=== PATIENT | female | born 1985 | race Caucasian/White ===

== ENCOUNTER 2023-08-07 10:55 | Emergency (ER) | payer OTHER, SELFPAY ==
[2023-08-07 10:58] VITALS: BP 140/81
[2023-08-07 12:19] LABS: % Basophils 1.2 % (0-2); % Eosinophils 0.6 % (0-6); % Immature Granulocytes 0.1 % (0-0.5); % Lymphocytes 28.3 % (20.5-51.1); % Monocytes 8.7 % (1.7-9.3); % Neutrophils 61.1 % (42.2-75.2); Absolute Basophils 0.1 10^3/uL (0-0.2); Absolute Monocytes 0.6 10^3/uL (0.1-0.6); Absolute Neutrophils 4.2 10^3/uL (1.4-6.5); Hematocrit 32.2 % (37.0-47.0); Mean Corp Hgb Conc. 31.1 g/dL (33.0-37.0); Mean Corpuscular Hgb 23.8 pg (27.0-31.0); Mean Corpuscular Volume 76.5 fL (81.0-99.0); Mean Platelet Volume 9.6 fL (7.4-10.4); Nucleated Red Blood Cells % 0 %; Platelet Count 380 10^3/uL (130-400); Red Blood Cell Count 4.21 10^6/uL (4.20-5.40); Red Cell Dist. Width 15.7 % (11.5-14.5); White Blood Cell Count 6.9 10^3/uL (4.8-10.8)
[2023-08-07] MEDS: DECADRON 10 MG IV (12:19)
[2023-08-07] MEDS: NSS 1000 IV (12:19)
[2023-08-07] MEDS: BENADRYL 25 MG IV (12:20)
[2023-08-07] MEDS: REGLAN 10 MG IV (12:20)
[2023-08-07] MEDS: TORADOL 15 MG IV (12:20)
[2023-08-07 12:39] LABS: HCG, Serum Qualitative Screen Negative
[2023-08-07 12:42] LABS: Blood Urea Nitrogen 15 mg/dl (7-17); Calcium 8.7 mg/dl (8.4-10.2); Carbon Dioxide 24 mmol/L (22-30); Chloride 110 mmol/L (98-107); Glucose 97 mg/dl (70-99); Potassium 4.1 mmol/L (3.5-5.1); Sodium 137 mmol/L (135-145); eGFR > 60.00
--- NOTE | 2023-08-07 12:43 | ED.GENMED ---
History of Present Illness
General
Chief Complaint: Headache
Source: patient and spouse
Exam Limitations: none
Time Seen by Provider: 08/07/23 11:28
Nursing documentation reviewed up to this point in time: agreed with
Travel History
Have you had any contact with someone who has COVID-19?: No
Do you have any symptoms of coronavirus? Fever > 100 degrees, chills, cough, shortness of breath, sore throat, loss of taste or smell, muscle aches, or headache?: Yes
Symptoms:: [place]
History of Present Illness
History of Present Illness:
38-year-old female with past medical history of previous seizures migraines anemia presenting to the emergency department today with concerns of left-sided ongoing headache. Diagnosed with Cat's palsy 3 weeks ago treated with steroid and
antiviral. Initially it symptoms but worsening symptoms of the past few days with swelling mainly to the left lateral neck. The drooping of her face has decreased. Denies any fever chest pain shortness of breath or additional concerns otherwise.
Past History
Past History
ED Past Medical History: None
ED Past Surgical History: None
Social History
Tobacco: Non-smoker
Alcohol: None
Drug: None
Personal: Single
Living: alone
Employment: Employed
Review of Systems
Review of Systems
Allergies reviewed?: Yes
All Other Systems: ROS reviewed and negative except as documented in HPI and ROS
Phy Exam
Physical Exam
Physical Exam:
GENERAL: Alert , in no apparent distress
EYE: pupils equal and reactive
NECK: Mild noticeable swelling to the left lateral neck however no redness or warmth no tenderness to palpation. Does have increased discomfort with rotation of the head to the left. Supple, no significant adenopathy.
ENT: o/p clr, mmm.
CARDIAC: Regular rate and rhythm .
LUNGS: Clear breath sounds bilaterally, no acute respiratory distress, no wheezes/rales/rhonchi
ABDOMEN: Soft, without focal tenderness, no r/g, no cvat
NEUROLOGICAL: Alert and oriented, no focal neuro deficits
SKIN: Warm and dry, skin intact.
MUSCULOSKELETAL: No edema, well perfused.
PSYCH: Normal and appropriate interaction.
Course
Orders/Labs/Results
Orders:
Orders
08/07/23 11:45
CT Neck With Iv Contrast Urgent
Comment:
Reason For Exam: neck pain, left lateral, swelling,
Dexamethasone Sod Phosphate [Decadron] 10 mg IV NOW STA
Diphenhydramine [Benadryl] 25 mg IV NOW STA
Ketorolac [Toradol] 15 mg IV NOW STA
Metoclopramide [Reglan] 10 mg IV NOW STA
08/07/23 11:49
0.9% Sodium Chloride 1000 ml [Nss] 1,000 ml IV BOLUS
08/07/23 12:02
Add On- LAB Urgent
Tests Added?: hcg qual serum
08/07/23 12:12
BMP [Basic Metabolic Panel] Urgent
CBC/With Diff [Complete Blood Count/With Diff] Urgent
HCG, Serum Qualitative Screen Urgent
Comment: ORDERED PER ADD ON
Abnormal Lab Results
08/07/23
12:12
Hgb 10.0 L g/dL
(12.0-16.0)
Hct 32.2 L %
(37.0-47.0)
MCV 76.5 L fL
(81.0-99.0)
MCH 23.8 L pg
(27.0-31.0)
MCHC 31.1 L g/dL
(33.0-37.0)
RDW 15.7 H %
(11.5-14.5)
Chloride 110 H mmol/L
(98-107)
08/07/23 12:12
08/07/23 12:12
Vital Signs
Initial and Last Documented VS:
Initial Vital Signs
Temp Pulse Resp BP Pulse Ox
98.9 F 91 18 140/81 100
08/07/23 10:58 08/07/23 10:58 08/07/23 10:58 08/07/23 10:58 08/07/23 10:58
Last Documented Vital Signs
Temp Pulse Resp BP Pulse Ox
98.9 F 91 18 140/81 100
08/07/23 10:58 08/07/23 10:58 08/07/23 10:58 08/07/23 10:58 08/07/23 10:58
MDM/Problems Addressed
MDM/Problems Addressed:
38-year-old female presenting to the emergency department today with concerns of swelling discomfort to the left lateral neck. Recent diagnosis of Cat's palsy 3 weeks ago treated with steroid and antiviral at that time. Here she does have some
swelling and some tenderness to the left lateral neck. No redness or warmth plan for scan for further assessment for deep space inflammation mass or infection. CT scan without emergent findings labs unremarkable patient no distress throughout ER
stay stable for outpatient management return precautions given. Patient may have muscle strain of the neck was given muscle relaxant advised for close outpatient follow-up.
*Critical Care Note
Total Time (30-74mins, 75-104mins- exclusive of procedures): Not Applicable
ED Attending Note
-
Portions of this chart may have been created with voice recognition software.� Occasional wrong word or��sound alike� substitutions may have occurred due to the inherent limitations of voice recognition software.
Discharge Plan
Departure
Patient Disposition: Home (Routine Discharge)
Date of Disposition: 08/07/23
Time of Disposition: 14:16
Patient with high blood pressure during this ER visit?: No
Condition: Good
Covid-19: Not Applicable
Discharge Problem:
Neck pain, Headache
Instructions: Headache, Adult (DC)
Prescriptions:
New
cyclobenzaprine 10 mg tablet
10 mg PO BID PRN (Reason: muscle spasm) Qty: 7 0RF
No Action
doxycycline hyclate 100 mg capsule
100 mg PO BID Qty: 42 0RF
oxycodone-acetaminophen [Percocet] 5-325 mg tablet
1 - 2 tab PO Q8H PRN (Reason: Pain) Qty: 10 0RF
ferrous sulfate [FeroSul] 325 mg (65 mg iron) Tablet
325 mg PO BID Qty: 0 0RF
acetaminophen 650 mg/20.3 mL Solution
650 mg PO Q4HPRN PRN (Reason: MILD PAIN) Qty: 0 0RF
ibuprofen 600 mg tablet
600 mg PO Q6H PRN (Reason: moderate cramps) Qty: 30 0RF
prednisone 20 mg tablet
60 mg PO DAILY 7 Days Qty: 21 0RF
artificial tears(hypromellose) 0.5 % drops
2 drp ophthalmic (eye) Q1H Qty: 15 0RF
valacyclovir 1 gram tablet
1,000 mg PO TID 7 Days Qty: 21 0RF
Referrals:
NONE,* [Family Provider] -
Activity Restrictions/Additional Instructions:
You came to the emergency department today with concerns of neck discomfort here you had a CT scan without emergent findings. This could be muscle strain. Please take Flexeril every hours as needed for neck discomfort follow-up closely with the
primary care doctor within 1 week. Return to the emergency department any worsening, new or concerning symptoms.
Interventions
Interventions:
*Risk Screen - Suicide Last Done: 08/07/23 11:27
*General Assessment Last Done: 08/07/23 11:27
*Neglect/Abuse Screening Last Done: 08/07/23 11:27
ED- Neurological Assessment Last Done: 08/07/23 11:31
== END 2023-08-07 14:32 | disposition home or self-care (01) ==
LOC: EMR 10:55
PROVIDERS: Physician Assistant; EMERGENCY PHYSICIAN Emergency Medicine
DX: R51.9 Headache, unspecified (principal); M54.2 Cervicalgia
CPT/HCPCS: 99285; 96374; 96375 ×3; 96361 ×2; 70491; 80048; 84703; 85025; Q9967

== ENCOUNTER 2023-08-20 16:05 | Emergency (ER) | payer OTHER, SELFPAY ==
[2023-08-20 16:06] VITALS: BP 131/65
--- NOTE | 2023-08-20 17:18 | ED.GENMED ---
History of Present Illness
<ARISTIDES Aly - Last Filed: 08/21/23 00:15>
General
Chief Complaint: Skin Problem
Source: patient
Exam Limitations: none
Time Seen by Provider: 08/20/23 16:37
Nursing documentation reviewed up to this point in time: agreed with
Travel History
Have you had any contact with someone who has COVID-19?: No
Do you have any symptoms of coronavirus? Fever > 100 degrees, chills, cough, shortness of breath, sore throat, loss of taste or smell, muscle aches, or headache?: No
History of Present Illness
History of Present Illness:
38-year-old female presents to the ER for evaluation. She complains of bilateral bruising to inner thighs. She reports this started when she started with [place] palsy Jul 21. She denies any injury she reports it started smaller but now the
bruising has increased. She is not on blood thinners and takes no medicine every day.
She has no history of clotting disorder.
Past History
<ARISTIDES Aly - Last Filed: 08/21/23 00:15>
Past History
ED Past Medical History: None
ED Past Surgical History: None
Social History
Tobacco: Non-smoker
Alcohol: None
Drug: None
Personal: Single
Living: alone
Employment: Employed
Review of Systems
<ARISTIDES Aly - Last Filed: 08/21/23 00:15>
Review of Systems
Allergies reviewed?: Yes
All Other Systems: ROS reviewed and negative except as documented in HPI and ROS
Constitutional: Reports no symptoms; Denies fever, fatigue or chills
Respiratory: Reports no symptoms
Cardiac: Reports no symptoms
ABD/GI: Reports no symptoms
Skin: Reports other ('bruising to thighs' )
Neurological: Reports no symptoms
Psychiatric: Reports no symptoms
Phy Exam
<ARISTIDES Aly - Last Filed: 08/21/23 00:15>
General Physical Exam
General Presentation: no apparent distress
General age: appears stated age
General Skin: warm and dry
General Habitus: normal
General Mental: alert
General Hydration: appears well hydrated
Neurological Exam
Neurological Exam: alert and oriented x3
Musculoskeletal Exam
Musculoskeletal Exam: other ( b/l thighs with areas of ecchymosis, right inner thigh ecchymosis is larger then the left , left inner thigh also w/birthmark, no swelling to legs )
Skin Exam
Skin Exam: normal color and warm/dry
Psychiatric Exam
Psychiatric Exam: normal mood/affect
Course
<ARISTIDES Aly - Last Filed: 08/21/23 00:15>
Orders/Labs/Results
Orders:
Orders
08/20/23 17:22
Complete Blood Count/With Diff Urgent
Comprehensive Metabolic Panel Urgent
PTT Urgent
Prothrombin Time Urgent
Abnormal Lab Results
08/20/23
17:22
RBC 4.13 L 10^6/uL
(4.20-5.40)
Hgb 9.5 L g/dL
(12.0-16.0)
Hct 30.6 L %
(37.0-47.0)
MCV 74.1 L fL
(81.0-99.0)
MCH 23.0 L pg
(27.0-31.0)
MCHC 31.0 L g/dL
(33.0-37.0)
RDW 16.0 H %
(11.5-14.5)
Plt Count 437 H 10^3/uL
(130-400)
Absolute Monos (auto) 0.9 H 10^3/uL
(0.1-0.6)
Monocytes % 9.8 H %
(1.7-9.3)
Chloride 110 H mmol/L
(98-107)
08/20/23 17:22
08/20/23 17:22
Vital Signs
Initial and Last Documented VS:
Initial Vital Signs
Temp Pulse Resp BP Pulse Ox
98.1 F 95 19 131/65 98
08/20/23 16:06 08/20/23 16:06 08/20/23 16:06 08/20/23 16:06 08/20/23 16:06
Last Documented Vital Signs
Temp Pulse Resp BP Pulse Ox
98.1 F 95 19 131/65 98
08/20/23 16:06 08/20/23 16:06 08/20/23 16:06 08/20/23 16:06 08/20/23 16:06
<Mason Nascimento MD - Last Filed: 08/20/23 18:48>
Orders/Labs/Results
Orders:
Orders
08/20/23 17:22
Complete Blood Count/With Diff Urgent
Comprehensive Metabolic Panel Urgent
PTT Urgent
Prothrombin Time Urgent
Abnormal Lab Results
08/20/23
17:22
RBC 4.13 L 10^6/uL
(4.20-5.40)
Hgb 9.5 L g/dL
(12.0-16.0)
Hct 30.6 L %
(37.0-47.0)
MCV 74.1 L fL
(81.0-99.0)
MCH 23.0 L pg
(27.0-31.0)
MCHC 31.0 L g/dL
(33.0-37.0)
RDW 16.0 H %
(11.5-14.5)
Plt Count 437 H 10^3/uL
(130-400)
Absolute Monos (auto) 0.9 H 10^3/uL
(0.1-0.6)
Monocytes % 9.8 H %
(1.7-9.3)
Chloride 110 H mmol/L
(98-107)
08/20/23 17:22
08/20/23 17:22
Vital Signs
Initial and Last Documented VS:
Initial Vital Signs
Temp Pulse Resp BP Pulse Ox
98.1 F 95 19 131/65 98
08/20/23 16:06 08/20/23 16:06 08/20/23 16:06 08/20/23 16:06 08/20/23 16:06
Last Documented Vital Signs
Temp Pulse Resp BP Pulse Ox
98.1 F 95 19 131/65 98
08/20/23 16:06 08/20/23 16:06 08/20/23 16:06 08/20/23 16:06 08/20/23 16:06
<ARISTIDES Aly - Last Filed: 08/21/23 00:15>
MDM/Problems Addressed
Differential Diagnosis Includes:
Not limited to thrombocytopenia, contusion, unknown injury
MDM/Problems Addressed:
Patient is a 38 old female who presented to the ER for evaluation of bruising to inner thighs that has been there since July 21. She denies any injury and has no complaints. She presents awake alert no acute distress. She has stable hemoglobin
of 9.5. She has a history of anemia and her last hemoglobin was August 07 and 9.8 on 21 July.
She has normal PT/INR stable platelets. She is on a blood thinners. She has no other complaints. She is nontoxic. Case reviewed physician will refer to hematology.
<ARISTIDES Aly - Last Filed: 08/21/23 00:15>
*Critical Care Note
Total Time (30-74mins, 75-104mins- exclusive of procedures): Not Applicable
ED Attending Note
<ARISTIDES Aly - Last Filed: 08/21/23 00:15>
-
Portions of this chart may have been created with voice recognition software.� Occasional wrong word or��sound alike� substitutions may have occurred due to the inherent limitations of voice recognition software.
<Mason Nascimento MD - Last Filed: 08/20/23 18:48>
ED Attending Note
Patient seen and examined by attending physician: Yes
I performed the substantive portion of visit, reviewed & personally made and approve the management plan that is documented in note by myself or MAY.: Yes
ED Attending Note:
Patient presents with concern of bruising upper inner thighs. Recently treated for Cat's palsy. On currently no medications. No other abnormal bleeding.
On exam patient is nontoxic in no distress. Approximately 15 cm area of ecchymosis to the right medial thigh. In stages of healing with some yellowing of ruiz. Smaller but similar area to the left medial thigh. No other ecchymosis petechia
purpura or other unusual bruising.
Labs are stable. No serious etiology found. Patient is nontoxic. No petechia or purpura. Will follow-up with hematology
Discharge Plan
Departure
Patient Disposition: Home (Routine Discharge)
Date of Disposition: 08/20/23
Time of Disposition: 18:29
Patient with high blood pressure during this ER visit?: Yes
Condition: Fair
Covid-19: Not Applicable
Discharge Problem:
Ecchymosis
Instructions: BLOOD PRESSURE
Prescriptions:
No Action
doxycycline hyclate 100 mg capsule
100 mg PO BID Qty: 42 0RF
oxycodone-acetaminophen [Percocet] 5-325 mg tablet
1 - 2 tab PO Q8H PRN (Reason: Pain) Qty: 10 0RF
ferrous sulfate [FeroSul] 325 mg (65 mg iron) Tablet
325 mg PO BID Qty: 0 0RF
acetaminophen 650 mg/20.3 mL Solution
650 mg PO Q4HPRN PRN (Reason: MILD PAIN) Qty: 0 0RF
ibuprofen 600 mg tablet
600 mg PO Q6H PRN (Reason: moderate cramps) Qty: 30 0RF
prednisone 20 mg tablet
60 mg PO DAILY 7 Days Qty: 21 0RF
artificial tears(hypromellose) 0.5 % drops
2 drp ophthalmic (eye) Q1H Qty: 15 0RF
valacyclovir 1 gram tablet
1,000 mg PO TID 7 Days Qty: 21 0RF
cyclobenzaprine 10 mg tablet
10 mg PO BID PRN (Reason: muscle spasm) Qty: 7 0RF
Referrals:
Angélica Flores MD [Family Provider] -
Jason Prado DO [Active] -
Activity Restrictions/Additional Instructions:
Follow-up with your family doctor as well as hematology for further evaluation of bruising. Return if any worsening of symptoms. As discussed your labs were stable.
Return if any worsening of symptoms
Interventions
Interventions:
*Risk Screen - Suicide Last Done: 08/20/23 16:06
*General Assessment Last Done: 08/20/23 16:06
*Neglect/Abuse Screening Last Done: 08/20/23 16:06
ED- Fall Risk Assessment Last Done: 08/20/23 18:44
*ED COVID-19 Vaccine History Last Done: 08/20/23 18:44
*Nursing Disposition Last Done: 08/20/23 18:44
ED-Skin Assessment Last Done: 08/20/23 18:29
Discharge Date and Time
Discharge Date/Time: 08/20/23 18:45
[2023-08-20 17:42] LABS: % Basophils 0.5 % (0-2); % Eosinophils 1.2 % (0-6); % Immature Granulocytes 0.2 % (0-0.5); % Lymphocytes 22.4 % (20.5-51.1); % Monocytes 9.8 % (1.7-9.3); % Neutrophils 65.9 % (42.2-75.2); Absolute Basophils 0.1 10^3/uL (0-0.2); Absolute Eosinophils 0.1 10^3/uL (0-0.7); Absolute Lymphocytes 2.1 10^3/uL (1.2-3.4); Absolute Monocytes 0.9 10^3/uL (0.1-0.6); Absolute Neutrophils 6.1 10^3/uL (1.4-6.5); Hematocrit 30.6 % (37.0-47.0); Hemoglobin 9.5 g/dL (12.0-16.0); Mean Corpuscular Volume 74.1 fL (81.0-99.0); Mean Platelet Volume 9.5 fL (7.4-10.4); Nucleated Red Blood Cells % 0 %; Platelet Count 437 10^3/uL (130-400); Red Blood Cell Count 4.13 10^6/uL (4.20-5.40); White Blood Cell Count 9.3 10^3/uL (4.8-10.8)
[2023-08-20 17:45] LABS: ALT (SGPT) 15 U/L (0-35); AST (SGOT) 23 U/L (14-36); Albumin 4.1 g/dl (3.5-5.0); Alkaline Phosphatase 54 U/L (38-126); Blood Urea Nitrogen 14 mg/dl (7-17); Calcium 8.6 mg/dl (8.4-10.2); Carbon Dioxide 25 mmol/L (22-30); Chloride 110 mmol/L (98-107); Glucose 94 mg/dl (70-99); Potassium 3.8 mmol/L (3.5-5.1); Sodium 138 mmol/L (135-145); Total Bilirubin 0.4 mg/dl (0.2-1.3); Total Protein 6.8 g/dl (6.3-8.2); eGFR > 60.00
[2023-08-20 17:46] LABS: APTT 31.3 Sec (23.4-35.0)
== END 2023-08-20 18:45 | disposition home or self-care (01) ==
LOC: EMR 16:05
PROVIDERS: Nurse Practitioner; EMERGENCY PHYSICIAN Emergency Medicine; FAMILY PHYSICIAN Family Medicine
DX: R23.3 Spontaneous ecchymoses (principal); R03.0 Elevated blood-pressure reading, without diagnosis of hypertension
CPT/HCPCS: 99283; 80053; 85025; 85610; 85730